=== PATIENT | female | born 1930 | race Hispanic/Latino ===

== ENCOUNTER 2017-09-01 21:10 | Inpatient (IN) | payer MEDICARE, BC ==
[2017-09-01 21:10] VITALS: BMI 21.2
--- NOTE | 2017-09-01 21:35 | ED PDOC ---
HPI: Psych/Substance Abuse Chief Complaint (Provider): psychiatric evaluation History Per: EMS, Other (NH) Additional Complaint(s): 86 y/o female history of bipolar disorder, dementia, hypothyroid, sent by [facility] for psychiatric evaluation. As per EMS, they were called because patient has been acting aggressive at the residential. Patient was admitted to [facility] last month for lithium toxicity and since then has not been on any medications for her bipolar. <Clover Sky - Last Filed: 09/02/17 05:57> <Oscar Espinoza - Last Filed: 09/02/17 06:34> Time Seen by Provider: 09/01/17 21:19 Chief Complaint (Nursing): Psychiatric Evaluation Past Medical History Reviewed: Historical Data, Nursing Documentation, Vital Signs Vital Signs: Last Vital Signs Temp 98.2 F 09/01/17 21:14 Pulse 107 H 09/01/17 21:14 Resp 20 09/01/17 21:14 BP 106/64 09/01/17 21:14 Pulse Ox 99 09/01/17 21:14 - Medical History PMH: Anxiety, Bipolar Disorder, Depression, HTN, Hypercholesterolemia, Hyperlipidemia, Hypothyroidism Denies: Chronic Kidney Disease - Family History Family History: States: Unknown Family Hx - Immunization History Hx Tetanus Toxoid Vaccination: No Hx Influenza Vaccination: No Hx Pneumococcal Vaccination: No <Clover Sky - Last Filed: 09/02/17 05:57> Vital Signs: Last Vital Signs Temp 98.0 F 09/02/17 03:53 Pulse 78 09/02/17 06:05 Resp 16 09/02/17 06:05 BP 105/79 09/02/17 06:05 Pulse Ox 100 09/02/17 06:05 <Oscar Espinoza - Last Filed: 09/02/17 06:34> - Home Medications Home Medications: Ambulatory Orders Medication Instructions Recorded Atorvastatin [Lipitor] 20 mg PO DAILY 07/10/17 Enalapril Maleate 5 mg PO DAILY 07/10/17 Levothyroxine [Synthroid] 50 mcg PO DAILY 07/10/17 Multivit-Min/FA/Lycopen/Lutein 1 each PO DAILY 07/10/17 [Centrum Silver Tablet] Acetaminophen [Tylenol 325mg tab] 650 mg PO Q6 PRN tab 07/15/17 Aluminum Hydroxide/Magnesium H 30 ml PO Q4H PRN 07/25/17 [Maalox 30 ml] Magnesium Hydroxide [Milk Of 30 ml PO HS 07/25/17 Magnesia] Docusate [Colace] 100 mg PO TID cap 08/05/17 Omeprazole [Omeprazole] 20 mg PO DAILY 09/02/17 - Allergies Allergies/Adverse Reactions: Allergies Allergy/AdvReac Type Severity Reaction Status Date / Time No Known Allergies Allergy Verified 09/02/17 04:15 Review of Systems Psych: Positive for: Psychosis <Clover Sky C - Last Filed: 09/02/17 05:57> Physical Exam - Reviewed Nursing Documentation Reviewed: Yes Vital Signs Reviewed: Yes - Physical Exam Appears: Positive for: Well, Non-toxic, No Acute Distress (calm, cooperative) Head Exam: Positive for: ATRAUMATIC, NORMAL INSPECTION, NORMOCEPHALIC Skin: Positive for: Normal Color Eye Exam: Positive for: Normal appearance ENT: Positive for: Normal ENT Inspection Cardiovascular/Chest: Positive for: Regular Rate, Rhythm Respiratory: Positive for: Normal Breath Sounds Gastrointestinal/Abdominal: Positive for: Normal Exam Back: Positive for: Normal Inspection Extremity: Positive for: Normal ROM Neurologic/Psych: Positive for: Alert, Oriented (x2) <Clover Sky C - Last Filed: 09/02/17 05:57> - Laboratory Results Result Diagrams: 09/01/17 21:48 09/01/17 21:48 - ECG ECG: Positive for: Viewed By Me (reviewed by ED attending) ECG Rhythm: Positive for: Sinus Tachycardia (105bpm) O2 Sat by Pulse Oximetry: 99 - Radiology X-Ray: Viewed By Me X-Ray Interpretation: No Acute Disease - Progress ED Course And Treament: labs, urine, ekg, chest xray, crisis eval 00:15 Patient attempting to get out of bed, swinging and cursing at staff trying to escort her back to bed. Ativan IM given. Soft restraints ordered for safety 1:30 Patient awake, resting comfortably in stretcher 3:00 Patient evaluated by squadron worker; to be admitted as per Dr. Harper pending POA arrival/signature Patient again agitated. Patient uncooperative for urine straight cath Ativan IM ordered 4:30 Patient sleeping; vitals stable on monitor 6:00 Patient sleeping; vitals stable on monitor <Clover Sky - Last Filed: 09/02/17 05:57> - Laboratory Results Result Diagrams: 09/01/17 21:48 09/01/17 21:48 <Oscar Espinoza - Last Filed: 09/02/17 06:34> Medical Decision Making Medical Decision Makin Patient sleeping comfortably, vitals normal. Pending POA arrival, will endorse case to Dr. Rendon. <Oscar Espinoza - Last Filed: 09/02/17 06:34> Disposition - Patient ED Disposition Is Patient to be Admitted: Yes - Disposition Disposition Time: 06:00 <Clover Sky - Last Filed: 09/02/17 05:57> - Patient ED Disposition Is Patient to be Admitted: Transfer of Care - Disposition Disposition: Transfer of Care Disposition Time: 07:00 Patient Signed Over To: Pedro Rendon Handoff Comments: pending arrival of POA and crisis determination <Oscar Espinoza - Last Filed: 09/02/17 06:34> - Clinical Impression Clinical Impression: Bipolar disorder - Disposition Condition: STABLE Forms: [employer] (Nauruan)
[2017-09-01 21:55] LABS: BASO % 0.2 % (0.0-2.0); EOS # 0.1 K/uL (0.0-0.7); EOS % 1.1 % (0.0-4.0); HEMOGLOBIN 10.9 g/dL (12.0-16.0); LYMPH # 1.1 K/uL (1.0-4.3); LYMPH % 15.7 % (20.0-40.0); MEAN CELL VOLUME 90.1 fl (81.0-99.0); MEAN CORPUSCULAR HGB CONC 34.3 g/dL (33.0-37.0); MEAN PLATELET VOLUME 7.6 fl (7.2-11.7); MONO # 0.6 K/uL (0.0-0.8); MONO % 9.1 % (0.0-10.0); NEUT # 5.3 K/uL (1.8-7.0); NEUT % 73.9 % (50.0-75.0); RBC 3.54 Mil/uL (3.80-5.20); RED CELL DISTRIBUTION WIDTH 14.7 % (11.5-14.5); WHITE BLOOD COUNT 7.1 K/uL (4.8-10.8)
[2017-09-01 22:04] LABS: ALB/GLOB RATIO 1.3 (1.0-2.1); ALBUMIN 3.7 g/dL (3.5-5.0); ALT/SGPT 33 U/L (9-52); AST/SGOT 31 U/L (14-36); BLOOD UREA NITROGEN 35 mg/dl (7-17); CALCIUM 9.3 mg/dL (8.4-10.2); GFR AFRICAN-AMERICAN 40; GFR NON-AFRICAN AMERICAN 33
[2017-09-02 04:20] LABS: URINE BILIRUBIN NEGATIVE (NEGATIVE); URINE BLOOD NEGATIVE (NEGATIVE); URINE CLARITY SLIGHTY-CLOUDY (Clear); URINE COLOR YELLOW (YELLOW); URINE GLUCOSE (UA) NEG (Normal); URINE LEUKOCYTE ESTERASE NEG Leu/uL (Negative); URINE PROTEIN NEGATIVE (NEGATIVE); URINE UROBILINOGEN 0.2-1.0 mg/dL (0.2-1.0)
[2017-09-02 04:23] LABS: BARBITURATES, UR NEGATIVE (NEGATIVE); OPIATES, UR NEGATIVE (NEGATIVE); PHENCYCLIDINE, UR NEGATIVE (NEGATIVE)
[2017-09-02 06:30] VITALS: O2SAT 100
--- NOTE | 2017-09-02 08:06 | RAD ---
HISTORY: ams COMPARISON: No prior. FINDINGS: LUNGS: No active pulmonary disease. PLEURA: No significant pleural effusion identified, no pneumothorax apparent. CARDIOVASCULAR: Normal. OSSEOUS STRUCTURES: No significant abnormalities. VISUALIZED UPPER ABDOMEN: Normal. OTHER FINDINGS: None. IMPRESSION: No acute cardiopulmonary disease appreciated.
--- NOTE | 2017-09-02 08:39 | ED PDOC ---
- Laboratory Results Result Diagrams: 09/01/17 21:48 09/01/17 21:48 - ECG O2 Sat by Pulse Oximetry: 100 - Progress ED Course And Treament: 700: Took over care from Dr. Espinoza. James on psych. Here for aggressive behavior and medically cleared by Dr. Espinoza. 1143: Stable. Crisis accepted pt. Labs similar to old. Disposition - Clinical Impression Clinical Impression: Bipolar disorder - POA Present On Arrival: None - Disposition Disposition: Admitted as In-Patient Disposition Time: 11:10 Condition: STABLE
[2017-09-02] MEDS ORDERED: Sodium Chloride 0.9% 500 ML IV STA (11:28)
[2017-09-02] MEDS ORDERED: Magnesium Hydroxide Susp 30 ml UD PO PRN (12:43)
[2017-09-02] MEDS ORDERED: Alum-Mag Hydrox-Simethicone Susp (30 mL) PO PRN (12:43)
[2017-09-02] MEDS ORDERED: Bismuth Subsalicylate 262 mg/15 ml Sus (240 ml) PO PRN (12:43)
--- NOTE | 2017-09-02 12:45 | PCM.PSYCH ---
Initial Psychiatric Evaluation - Initial Psychiatric Evaluation Type of Admission: Voluntary Legal Status: DPOA Chief Complaint (in patient's own words): Behavioral disturbances; poor appetite and diminished self care Patient's Reaction to Hospitalization: HPI: 86 yo w/ h/o Bipolar Disorder, Dementia, HTN, Hypothyrodism, Constipation, brought to ED for worsening behavior disturbances, aggression, decreased appetite, poor self care, mood lability and worsening dementia. Patient is unable to provide any history at this time due to acute disorganization. Software Product Specialist spoke with patient's sister, TEE, Aime Whelan [phone], who stated that the patient has been increasingly aggressive. She reports that has a long history of bipolar disorder, but was recently discontinued off the Ludden due to Ludden toxicity last month. PMHx: HTN, Hypothyroidism, Dementia PPHx: H/o Bipolar disorder and treatment w/ Ludden All: NKDA SHx: Denied any tobacco, ETOH, or illicit drug use; resides in a shelter POA: Aime Whelan - sister - [phone] Past Psychiatric History - Past Psychiatric History Pertinent Medical Hx (Current Medical&Sleep Prob, Allergies): Allergies Allergy/AdvReac Type Severity Reaction Status Date / Time No Known Allergies Allergy Verified 09/02/17 04:15 Atorvastatin [Lipitor] 20 mg PO DAILY 07/10/17 Enalapril Maleate 5 mg PO DAILY 07/10/17 Levothyroxine [Synthroid] 50 mcg PO DAILY 07/10/17 Multivit-Min/FA/Lycopen/Lutein [Centrum Silver Tablet] 1 each PO DAILY 07/10/17 Acetaminophen [Tylenol 325mg tab] 650 mg PO Q6 PRN tab 07/15/17 Aluminum Hydroxide/Magnesium H [Maalox 30 ml] 30 ml PO Q4H PRN 07/25/17 Magnesium Hydroxide [Milk Of Magnesia] 30 ml PO HS 07/25/17 Docusate [Colace] 100 mg PO TID cap 08/05/17 Omeprazole [Omeprazole] 20 mg PO DAILY 09/02/17 Review of Systems - Neurological Neurological: Abnormal Gait, Memory Loss - Psychiatric Psychiatric: As Per HPI, Abnormal Sleep Pattern, Behavioral Changes, Change in Appetite, Confusion, Difficulty Concentrating, Irritability, Memory Loss, Mood Swings Mental Status Examination - Personal Presentation Personal Presentation: Looks stated age - Affect Affect: Constricted - Motor Activity Motor Activity: Calm - Reliability in Providing Information Reliability in Providing Information: Poor, due to cognitve impairment - Speech Speech: Disorganized - Mood Mood: Neutral - Formal Thought Process Formal Thought Process: Loosening of associations - Hallucinations/Delusions Additional comments: No acute AH/VH - Obsessions/Compulsions Obsessions: No Compulsions: No - Cognitive Functions Orientation: Person Sensorium: Lethargic Attention/Concentration: Easily distracted Judgement: Imparied, as evidence by: Poor judgement, Imparied, as evidence by: Lack of insight into illness Memory: Recent impaired, as evidence by: Inability to recall events of the day, Recent imparied as evidence by:Inability to complete 3/3 object recall, Remote impaired as evidenced by: Inability to recall sig life events, Remote impaired as evidenced by: Inability to recall historical events - Risk Risk: Diminished functioning - Strength & Assets Inventory Strength & Assets Inventory: Family support - Limitations Limitations: Decreased memory, recent DSM 5 DX - DSM 5 DSM 5 Diagnosis: Bipolar Disorder; Dementia with Behavioral Disturbances - Recommended/Plan of Treatment Treatment Recommendations and Plan of Treatment: Bipolar Disorder; Dementia with Behavioral Disturbances -Admit to geriatric psychiatry unit -Medicine consult -Individual and group therapy -Case discussed w/ POA -Psychoeducation for patient and family -Restart Namenda -Start Depakote; will monitor VPA level -PT consult -Dietitian referral -Disposition planning Projected ELOS: 7-14 days Discharge Plan and Discharge Criteria: Discharge when patient is psychiatrically stable - Smoking Cessation Smoking Cessation Initiated: No Reason for not providing: Not indicated
[2017-09-02] MEDS ORDERED: Pantoprazole 40 mg EC Tab PO SCH (13:00)
--- NOTE | 2017-09-02 13:02 | PCM.BM ---
<Jenny Patterson - Last Filed: 09/02/17 12:55> Treatment Plan Problems - Problems identified on initial assessmt agitation/agressive behavior Date Initiated: 09/02/17 Time Initiated: 13:02 Date resolved: 09/09/17 Assessment reference: AT, NA Status: Active Priority: 1 high risk for injury Date Initiated: 09/02/17 Time Initiated: 13:07 Date resolved: 09/09/17 Assessment reference: NA Status: Active Priority: 2 Treatment assets and liabiliti Patient Assests: good support system Patient Liabilities: medical problems, imparied memory - Milieu Protocol Maintain good personal hygiene: every shift Encourage regular showers, every shift Remind patient to perform daily oral care, every shift Assist patient to perform ADL's Maintain personal safety: every shift Educate patient to report safety concerns to staff, every shift Monitor environment for contraband/sharps Medication safety: Monitor for expected outcome, potential side effects: every shift, Assess barriers to learning: every shift, Assess readiness for medication education: every shift <Ginny Hinojosa - Last Filed: 09/02/17 13:28> - Diagnosis (1) Dementia with behavioral disturbance Status: Acute Interventions: Medication management, Individual and group therapy, Psychoeducation 09/02/17 13:28 (2) Bipolar disorder Status: Acute Interventions: Medication management, Individual and group therapy, Psychoeducation 09/02/17 13:28 <Keila Mcbride - Last Filed: 09/03/17 12:43> Family Contact Family contact: Patient agrees to contact, Family has been contacted by patient , Telephone contact initiated by staff Family contact name: Aime LUI) Family contacted how many times per week?: 2 Family contact comment: [phone] - Outside Agency [facility] Care involvment: Information-sharing Agency contact number: [phone] - Goals for Treatment Patient goals for treatment: Pt to be encouraged to attend activity and clinical groups 3-5x per week to identify at least 2 contributing factors to increased agitation, irritability, and aggression. Psycho-education to be provided to patient/family regarding benefits of medications and treatment adherence. Pt to be encouraged to participate in group milieu to develop effective coping skills to reduce aggression and reduce psychiatric hospitalizations. Coordinate discharge resource needs by providing referral for psychiatric treatment follow up in the community. Discharge/Continuing Care - Education Needs Education Needs: Family Medication, Family Diagnosis/Disease Process, Family Coping Skills, Family Placement options, Family Uses of Medical Equipment, Family Health Practices/Safety, Family Personal Hygiene/Grooming - Discharge Discharge Criteria: Tolerates medication w/o severe side effects, Free of agitation, Normal sleep pattern, Ability to care for self, Reduction of target symptoms Discharge to:: Group Home - Additional Comments 09/03/17 12:39 Pt discussed in team meeting. Pt observed to be asleep and not easily aroused. Reason for admissions reviewed and discussed. Pt's medical and social issues reviewed. Pt's medications reviewed and discussed. Tx plan reviewed. SW to contact POA and LTC facility for collateral information. SW to continue to follow case. - Treatment Team Participation Discussed with Family/SO: No Was Patient/Family/SO present at Treatment Team Meeting: No
--- NOTE | 2017-09-02 13:49 | CARD ---
APPROVED REPORT EKG Measurement Heart [id number] <Conclusion> Sinus tachycardia RBBB Borderline ECG
--- NOTE | 2017-09-02 15:00 | CP.PCM.CON ---
History of Present Illness - History of Present Illness History of Present Illness: Reason for Consult: Per hospital protocol HPI: 86 year old female PMH HTN, hyperthyroid, dyslipidemia, bipolar disorder, dementia, admitted to psych for aggressive behavior. Currently patient unable to give history due to sedation given in ED. Cast L arm. HD stable, no acute distress at this time. ROS: Per HPI, all other systems reviewed and neg PMH: HTN, hyperthyroid, dyslipidemia, bipolar disorder, dementia FH: denies SH: denies tobacco, ETOH, IVDU NKDA Vitals Reviewed GEN: sedated, somnolent HEENT: NCAT, PERRL, EOMI HEART: RRR, +S1S2, NO MRG LUNG: CTAB, NO WRR ABD: soft, NT, ND, No HSM, No masses EXT: normal pedal pulses, normal capillary refill NEURO: sedated, somnolent, reflexes normal SKIN: warm, dry PSYCH: unable to assess, sedated LABS Most Recent Lab Values WBC 7.1 K/uL (4.8-10.8) 09/01/17 21:48 RBC 3.54 Mil/uL (3.80-5.20) L 09/01/17 21:48 Hgb 10.9 g/dL (12.0-16.0) L 09/01/17 21:48 Hct 31.9 % (34.0-47.0) L 09/01/17 21:48 MCV 90.1 fl (81.0-99.0) 09/01/17 21:48 MCH 31.0 pg (27.0-31.0) 09/01/17 21:48 MCHC 34.3 g/dL (33.0-37.0) 09/01/17 21:48 RDW 14.7 % (11.5-14.5) H 09/01/17 21:48 Plt Count 222 K/uL (130-400) 09/01/17 21:48 MPV 7.6 fl (7.2-11.7) 09/01/17 21:48 Neut % (Auto) 73.9 % (50.0-75.0) 09/01/17 21:48 Lymph % (Auto) 15.7 % (20.0-40.0) L 09/01/17 21:48 Bailey % (Auto) 9.1 % (0.0-10.0) 09/01/17 21:48 Eos % (Auto) 1.1 % (0.0-4.0) 09/01/17 21:48 Baso % (Auto) 0.2 % (0.0-2.0) 09/01/17 21:48 Neut # (Auto) 5.3 K/uL (1.8-7.0) 09/01/17 21:48 Lymph # (Auto) 1.1 K/uL (1.0-4.3) 09/01/17 21:48 Bailey # (Auto) 0.6 K/uL (0.0-0.8) 09/01/17 21:48 Eos # (Auto) 0.1 K/uL (0.0-0.7) 09/01/17 21:48 Baso # (Auto) 0.0 K/uL (0.0-0.2) 09/01/17 21:48 Sodium 139 mmol/l (132-148) 09/01/17 21:48 Potassium 4.6 MMOL/L (3.6-5.0) 09/01/17 21:48 Chloride 98 mmol/L (98-107) 09/01/17 21:48 Carbon Dioxide 31 mmol/L (22-30) H 09/01/17 21:48 Anion Gap 15 (10-20) 09/01/17 21:48 BUN 35 mg/dl (7-17) H 09/01/17 21:48 Creatinine 1.5 mg/dl (0.7-1.2) H 09/01/17 21:48 Est GFR ( Amer) 40 09/01/17 21:48 Est GFR (Non-Af Amer) 33 09/01/17 21:48 POC Glucose (mg/dL) 116 mg/dL (65-110) H 09/01/17 21:46 Random Glucose 112 mg/dL (65-105) H 09/01/17 21:48 Calcium 9.3 mg/dL (8.4-10.2) 09/01/17 21:48 Total Bilirubin 0.4 mg/dl (0.2-1.3) 09/01/17 21:48 AST 31 U/L (14-36) 09/01/17 21:48 ALT 33 U/L (9-52) 09/01/17 21:48 Alkaline Phosphatase 68 U/L (38-126) 09/01/17 21:48 Total Protein 6.6 G/DL (6.3-8.2) 09/01/17 21:48 Albumin 3.7 g/dL (3.5-5.0) 09/01/17 21:48 Globulin 2.9 gm/dL (2.2-3.9) 09/01/17 21:48 Albumin/Globulin Ratio 1.3 (1.0-2.1) 09/01/17 21:48 TSH 3rd Generation 5.11 mIU/ML (0.46-4.68) H 09/01/17 21:48 Urine Color Yellow (YELLOW) 09/02/17 03:45 Urine Clarity Slighty-cloudy (Clear) 09/02/17 03:45 Urine pH 6.0 (5.0-8.0) 09/02/17 03:45 Ur Specific [place] 1.012 (1.003-1.030) 09/02/17 03:45 Urine Protein Negative mg/dL (NEGATIVE) 09/02/17 03:45 Urine Glucose (UA) Neg mg/dL (Normal) 09/02/17 03:45 Urine Ketones Negative mg/dL (NEGATIVE) 09/02/17 03:45 Urine Blood Negative (NEGATIVE) 09/02/17 03:45 Urine Nitrate Negative (NEGATIVE) 09/02/17 03:45 Urine Bilirubin Negative (NEGATIVE) 09/02/17 03:45 Urine Urobilinogen 0.2-1.0 mg/dL (0.2-1.0) 09/02/17 03:45 Ur Leukocyte Esterase Neg Vianca/uL (Negative) 09/02/17 03:45 Urine RBC (Auto) 1 /hpf (0-3) 09/02/17 03:45 Urine Microscopic WBC < 1 /hpf (0-5) 09/02/17 03:45 Urine Opiates Screen Negative (NEGATIVE) 09/02/17 03:45 Urine Methadone Screen Negative (NEGATIVE) 09/02/17 03:45 Ur Barbiturates Screen Negative (NEGATIVE) 09/02/17 03:45 Ur Phencyclidine Scrn Negative (NEGATIVE) 09/02/17 03:45 Ur Amphetamines Screen Negative (NEGATIVE) 09/02/17 03:45 U Benzodiazepines Scrn No result (NEGATIVE) 09/02/17 03:45 [employer] < 0.2 MMOL/L (0.6-1.2) L 09/01/17 21:48 U Oth Cocaine Metabols Negative (NEGATIVE) 09/02/17 03:45 U Cannabinoids Screen Negative (NEGATIVE) 09/02/17 03:45 Alcohol, Quantitative < 10 mg/dl (0-10) 09/01/17 21:48 ASSESSMENT AND PLAN 86 year old female PMH HTN, hyperthyroid, dyslipidemia, bipolar disorder, dementia, admitted to psych for aggressive behavior. Currently patient unable to give history due to sedation given in ED. HD stable, no acute distress at this time. Dementia, Bipolar disorder - management per psych team Multiple Falls, L arm cast - Cast L arm, outpatient follow up in one week HTN - continue Enalapril Hyperthyroid - continue Synthroid Dyslipidemia - continue Lipitor Past Patient History - Past Medical History & Family History Past Medical History?: Yes - Past Social History Smoking Status: Never Smoked - CARDIAC Hx Hypercholesterolemia: Yes Hx Hypertension: Yes - PULMONARY Hx Tuberculosis: No - NEUROLOGICAL HX Cerebrovascular Accident: No Hx Seizures: No - HEENT Hx HEENT Problems: No - RENAL Hx Chronic Kidney Disease: No - ENDOCRINE/METABOLIC Hx Hypothyroidism: Yes - HEMATOLOGICAL/ONCOLOGICAL Hx Cancer: No Hx Human Immunodeficiency Virus (HIV): No - INTEGUMENTARY Hx Dermatological Problems: No - MUSCULOSKELETAL/RHEUMATOLOGICAL Hx Musculoskeletal Disorders: Yes Hx Falls: Yes - GASTROINTESTINAL Hx Gastrointestinal Disorders: No - GENITOURINARY/GYNECOLOGICAL Hx Sexually Transmitted Disorders: No - PSYCHIATRIC Hx Anxiety: Yes Hx Bipolar Disorder: Yes Hx Depression: Yes - SURGICAL HISTORY Hx Surgeries: No Other/Comment: left distal radius closed reduction (07/14/17) - ANESTHESIA Hx Anesthesia: Yes Hx Anesthesia Reactions: No Hx Malignant Hyperthermia: No Meds Allergies/Adverse Reactions: Allergies Allergy/AdvReac Type Severity Reaction Status Date / Time No Known Allergies Allergy Verified 09/02/17 04:15 - Medications Medications: Current Medications Acetaminophen (Tylenol 325mg Tab) 650 mg PO Q4 PRN PRN Reason: Pain, moderate (4-7) Al Hydrox/Mg Hydrox/Simethicone (Maalox Plus 30 Ml) 30 ml PO Q4 PRN PRN Reason: Dyspepsia Atorvastatin Calcium (Lipitor) 20 mg PO DAILY [facility] Bismuth Subsalicylate (Pepto-Bismol) 524 mg PO Q4 PRN PRN Reason: Diarrhea Divalproex Sodium (Depakote Sprinkles) 250 mg PO BID MICHAEL Docusate Sodium (Colace) 100 mg PO BID [facility] Enalapril Maleate (Vasotec) 5 mg PO DAILY [facility] Haloperidol Lactate (Haldol) 0.5 mg IM Q12 PRN PRN Reason: Agitation Levothyroxine Sodium (Synthroid) 50 mcg PO DAILY@0630 MICHAEL Lorazepam (Ativan) 0.5 mg PO HS PRN PRN Reason: Insomnia Stop: 09/16/17 12:44 Lorazepam (Ativan) 0.5 mg PO Q6 PRN PRN Reason: Anixety/Agitation Stop: 09/16/17 12:44 Magnesium Hydroxide (Milk Of Magnesia) 30 ml PO HS PRN PRN Reason: Constipation Memantine (Namenda) 5 mg PO BID [facility] Multivitamins/Minerals (Therapeutic-M Tab) 1 tab PO DAILY [facility] Risperidone (Risperdal M-Tab) 0.5 mg PO Q12 PRN PRN Reason: Agitation Results - Vital Signs Recent Vital Signs: Last Vital Signs Temp 97.9 F 09/02/17 11:55 Pulse 62 09/02/17 11:55 Resp 17 09/02/17 11:55 BP 118/78 09/02/17 11:55 Pulse Ox 100 09/02/17 11:55 - Labs Result Diagrams: 09/01/17 21:48 09/01/17 21:48 Labs: Laboratory Results - last 24 hr 09/01/17 09/01/17 09/01/17 21:46 21:48 21:48 WBC 7.1 RBC 3.54 L Hgb 10.9 L Hct 31.9 L MCV 90.1 MCH 31.0 MCHC 34.3 RDW 14.7 H Plt Count 222 MPV 7.6 Neut % (Auto) 73.9 Lymph % (Auto) 15.7 L Bailey % (Auto) 9.1 Eos % (Auto) 1.1 Baso % (Auto) 0.2 Neut # (Auto) 5.3 Lymph # (Auto) 1.1 Bailey # (Auto) 0.6 Eos # (Auto) 0.1 Baso # (Auto) 0.0 Sodium 139 Potassium 4.6 Chloride 98 Carbon Dioxide 31 H Anion Gap 15 BUN 35 H Creatinine 1.5 H Est GFR ( Amer) 40 Est GFR (Non-Af Amer) 33 POC Glucose (mg/dL) 116 H Random Glucose 112 H Calcium 9.3 Total Bilirubin 0.4 AST 31 ALT 33 Alkaline Phosphatase 68 Total Protein 6.6 Albumin 3.7 Globulin 2.9 Albumin/Globulin Ratio 1.3 TSH 3rd Generation 5.11 H Urine Color Urine Clarity Urine pH Ur Specific [place] Urine Protein Urine Glucose (UA) Urine Ketones Urine Blood Urine Nitrate Urine Bilirubin Urine Urobilinogen Ur Leukocyte Esterase Urine RBC (Auto) Urine Microscopic WBC Urine Opiates Screen Urine Methadone Screen Ur Barbiturates Screen Ur Phencyclidine Scrn Ur Amphetamines Screen U Benzodiazepines Scrn [employer] U Oth Cocaine Metabols U Cannabinoids Screen Alcohol, Quantitative < 10 09/01/17 09/02/17 09/02/17 21:48 03:45 03:45 WBC RBC Hgb Hct MCV MCH MCHC RDW Plt Count MPV Neut % (Auto) Lymph % (Auto) Bailey % (Auto) Eos % (Auto) Baso % (Auto) Neut # (Auto) Lymph # (Auto) Bailey # (Auto) Eos # (Auto) Baso # (Auto) Sodium Potassium Chloride Carbon Dioxide Anion Gap BUN Creatinine Est GFR ( Amer) Est GFR (Non-Af Amer) POC Glucose (mg/dL) Random Glucose Calcium Total Bilirubin AST ALT Alkaline Phosphatase Total Protein Albumin Globulin Albumin/Globulin Ratio TSH 3rd Generation Urine Color Yellow Urine Clarity Slighty-cloudy Urine pH 6.0 Ur Specific [place] 1.012 Urine Protein Negative Urine Glucose (UA) Neg Urine Ketones Negative Urine Blood Negative Urine Nitrate Negative Urine Bilirubin Negative Urine Urobilinogen 0.2-1.0 Ur Leukocyte Esterase Neg Urine RBC (Auto) 1 Urine Microscopic WBC < 1 Urine Opiates Screen Negative Urine Methadone Screen Negative Ur Barbiturates Screen Negative Ur Phencyclidine Scrn Negative Ur Amphetamines Screen Negative U Benzodiazepines Scrn No result [employer] < 0.2 L U Oth Cocaine Metabols Negative U Cannabinoids Screen Negative Alcohol, Quantitative
[2017-09-02] MEDS: Divalproex 125 mg Sprinkle Capsule PO SCH (16:56)
[2017-09-02] MEDS: Multivitamin With Minerals Tab PO SCH (16:58)
[2017-09-02] MEDS ORDERED: Divalproex 125 mg Sprinkle Capsule PO SCH (17:00)
[2017-09-03 06:43] LABS: HEMOGLOBIN 11.1 g/dL (12.0-16.0); MEAN CELL VOLUME 90.7 fl (81.0-99.0); MEAN CORPUSCULAR HGB CONC 33.1 g/dL (33.0-37.0); RBC 3.7 Mil/uL (3.80-5.20); RED CELL DISTRIBUTION WIDTH 14.7 % (11.5-14.5); WHITE BLOOD COUNT 6.2 K/uL (4.8-10.8)
[2017-09-03 06:57] LABS: LDL CHOLESTEROL 72 mg/dL (0-129)
[2017-09-03 07:03] LABS: T4 5.55 ug/dl (5.5-11.0)
[2017-09-03 07:28] LABS: ALB/GLOB RATIO 1.2 (1.0-2.1); ALBUMIN 3.2 g/dL (3.5-5.0); ALT/SGPT 39 U/L (9-52); AST/SGOT 38 U/L (14-36); BLOOD UREA NITROGEN 24 mg/dl (7-17); CALCIUM 9.1 mg/dL (8.4-10.2); GFR AFRICAN-AMERICAN 51; GFR NON-AFRICAN AMERICAN 42; HDL CHOLESTEROL 66 MG/DL (30-70)
--- NOTE | 2017-09-03 09:15 | PCM.PYCHPN ---
Psychiatric Progress Note - Psychiatric Progress Note Patient seen today, length of contact: Patient evaluated, case discussed with team, chart reviewed Patient Chief Complaint: Behavioral disturbances; poor appetite and diminished self care Problems Identified/Issues Discussed: Patient slept overnight. She is sleeping excessively, likely due to not sleeping the night before and being medicated with PRN medications in the ER due to extreme agitation. No PRN medications needed yesterday after she was admitted to the psychiatry unit. Garment Sewer Hand spoke with TEE yesterday who states that this is not the patient's baseline of functioning and normally she is alert and calm. Medication Change: No Medical Record Reviewed: Yes Consults ordered or reviewed: Medicine consult Mental Status Examination - Cognitive Function Orientation: Person Memory: Impaired Attention: Poor Concentration: Poor Association: Loose Fund of Knowledge: Poor Decription of patient's judgement and insights: Chronic poor I/J due to dementia - Mood Mood: Neutral - Affect Affect: Constricted - Formal Thought Process Formal Thought Process: Loosening of associations Psychotic Thoughts and Behaviors: No AH/VH/paranoia - Suicidal Ideation Suicidal Ideation: No - Homicidal Ideation Homicidal Ideation: No Goal/Treatment Plan - Goal/Treatment Plan Need for Continued Stay: Remain at risks for inpatient hospitalization, Discharge may exacerbated symptoms, Severe functional impairment Progress Toward Problem(s) and Goals/Treatment Plan: Bipolar Disorder; Dementia with Behavioral Disturbances -Medicine consult -Individual and group therapy -Case discussed w/ POA -Psychoeducation provided to POA -Continue Namenda -Continue Depakote; will monitor VPA level -PT consult -Dietitian referral -Disposition planning Estimated Date of D/C: 09/09/17 - Smoking Cessation Smoking Cessation Initiated: No Reason for not providing: Not indicated
[2017-09-03] MEDS: Divalproex 125 mg Sprinkle Capsule PO SCH ×2 (11:00→16:54)
[2017-09-03] MEDS: Levothyroxine 50 MCG TAB PO SCH (11:03)
[2017-09-03] MEDS: Multivitamin With Minerals Tab PO SCH (11:04)
[2017-09-03 16:04] LABS: FOLATE > 20.0 ng/mL
--- NOTE | 2017-09-04 09:51 | PCM.PYCHPN ---
Psychiatric Progress Note - Psychiatric Progress Note Patient seen today, length of contact: Patient evaluated, case discussed with team, chart reviewed Patient Chief Complaint: Behavioral disturbances; poor appetite and diminished self care Problems Identified/Issues Discussed: Patient did not sleep well overnight and has been sleeping excessively during the day. She continues to be labile, but has not been acutely violent towards others. She continues to have poor appetite and poor self care. She has chronic poor insight/judgment due to dementia. No adverse effects to medication reported or observed. Medication Change: No Medical Record Reviewed: Yes Consults ordered or reviewed: Medicine consult Mental Status Examination - Cognitive Function Orientation: Person Memory: Impaired Attention: Poor Concentration: Poor Association: Loose Fund of Knowledge: Poor Decription of patient's judgement and insights: Chronic poor I/J due to dementia - Mood Mood: Neutral - Affect Affect: Constricted - Formal Thought Process Formal Thought Process: Loosening of associations Psychotic Thoughts and Behaviors: No AH/VH/paranoia - Suicidal Ideation Suicidal Ideation: No - Homicidal Ideation Homicidal Ideation: No Goal/Treatment Plan - Goal/Treatment Plan Need for Continued Stay: Remain at risks for inpatient hospitalization, Discharge may exacerbated symptoms, Severe functional impairment Progress Toward Problem(s) and Goals/Treatment Plan: Bipolar Disorder; Dementia with Behavioral Disturbances -Medicine consult -Individual and group therapy -Case discussed w/ POA -Psychoeducation provided to POA -Continue Namenda -Continue Depakote; will monitor VPA level -PT consult -Dietitian consult -Disposition planning Estimated Date of D/C: 09/10/17
[2017-09-04] MEDS: Divalproex 125 mg Sprinkle Capsule PO SCH ×2 (10:22→16:50)
[2017-09-04] MEDS: Levothyroxine 50 MCG TAB PO SCH (10:25)
[2017-09-04] MEDS: Multivitamin With Minerals Tab PO SCH (14:48)
[2017-09-04] MEDS: Cholecalciferol 400 Intl Units Tab PO SCH (16:50)
--- NOTE | 2017-09-05 07:54 | PCM.PYCHPN ---
Psychiatric Progress Note - Psychiatric Progress Note Patient seen today, length of contact: Patient evaluated, case discussed with team, chart reviewed Patient Chief Complaint: Behavioral disturbances; poor appetite and diminished self care Problems Identified/Issues Discussed: Patient had improved sleep last night. She is not violent or aggressive, but continues to be labile. She is paranoid that staff are trying to harm her and does not want to talk with policy writer. She continues to have poor appetite and poor self care. She has chronic poor insight/judgment due to dementia. No adverse effects to medication reported or observed. Medication Change: Yes (Start Risperdal 0.25 mg PO HS) Medical Record Reviewed: Yes Consults ordered or reviewed: Medicine consult Mental Status Examination - Cognitive Function Orientation: Person Memory: Impaired Attention: Poor Concentration: Poor Association: Loose Fund of Knowledge: Poor Decription of patient's judgement and insights: Chronic poor I/J due to dementia - Mood Mood: Neutral - Affect Affect: Constricted - Formal Thought Process Formal Thought Process: Paranoia, Loosening of associations Psychotic Thoughts and Behaviors: +Paranoia - Suicidal Ideation Suicidal Ideation: No - Homicidal Ideation Homicidal Ideation: No Goal/Treatment Plan - Goal/Treatment Plan Need for Continued Stay: Remain at risks for inpatient hospitalization, Discharge may exacerbated symptoms, Severe functional impairment Progress Toward Problem(s) and Goals/Treatment Plan: Bipolar Disorder; Dementia with Behavioral Disturbances -Medicine consult -Individual and group therapy -Case discussed w/ POA -Psychoeducation provided to POA -Continue Namenda -Continue Depakote; VPA level ordered for 09/08/17 -Start Risperdal 0.25 mg PO HS for acute paranoia -PT consult -Dietitian consult -Disposition planning Estimated Date of D/C: 09/10/17
[2017-09-05] MEDS: Divalproex 125 mg Sprinkle Capsule PO SCH ×2 (08:00→16:54)
[2017-09-05] MEDS: Cholecalciferol 400 Intl Units Tab PO SCH (08:01)
[2017-09-05] MEDS: Levothyroxine 50 MCG TAB PO SCH (08:01)
[2017-09-05] MEDS: Multi Vitamins 15 mL UD Oral Solution PO SCH (08:25)
[2017-09-05] MEDS: Risperidone M tab 0.5MG PO PRN (16:55)
[2017-09-06] MEDS: Levothyroxine 50 MCG TAB PO SCH (06:18)
[2017-09-06] MEDS: Divalproex 125 mg Sprinkle Capsule PO SCH ×2 (08:22→17:04)
[2017-09-06] MEDS: Multi Vitamins 15 mL UD Oral Solution PO SCH (08:23)
[2017-09-06] MEDS: Cholecalciferol 400 Intl Units Tab PO SCH (08:23)
--- NOTE | 2017-09-06 13:20 | PCM.PYCHPN ---
Psychiatric Progress Note - Psychiatric Progress Note Patient seen today, length of contact: Patient evaluated, case discussed with team, chart reviewed Patient Chief Complaint: I am tired Problems Identified/Issues Discussed: pt seen in bed, guarded, anxious, confused , denied any current suicidal or homicidal ideation, denied prceptual disturbances DSM 5 Symptoms Update: dementia bipolar disorder Medication Change: No Medical Record Reviewed: Yes Mental Status Examination - Cognitive Function Orientation: Person Memory: Impaired Attention: Poor Concentration: Poor Association: Loose Fund of Knowledge: Poor - Mood Mood: Neutral - Affect Affect: Constricted - Formal Thought Process Formal Thought Process: Paranoia, Loosening of associations - Suicidal Ideation Suicidal Ideation: No - Homicidal Ideation Homicidal Ideation: No Goal/Treatment Plan - Goal/Treatment Plan Need for Continued Stay: Remain at risks for inpatient hospitalization, Discharge may exacerbated symptoms, Severe functional impairment Progress Toward Problem(s) and Goals/Treatment Plan: continue current management Estimated Date of D/C: 09/10/17
[2017-09-06] MEDS: Risperidone M tab 0.5MG PO PRN (17:05)
[2017-09-07] MEDS: Divalproex 125 mg Sprinkle Capsule PO SCH ×2 (09:41→17:16)
[2017-09-07] MEDS: Levothyroxine 50 MCG TAB PO SCH (09:42)
[2017-09-07] MEDS: Multi Vitamins 15 mL UD Oral Solution PO SCH (09:42)
[2017-09-07] MEDS: Cholecalciferol 400 Intl Units Tab PO SCH (09:43)
--- NOTE | 2017-09-07 14:33 | PCM.PYCHPN ---
Psychiatric Progress Note - Psychiatric Progress Note Patient seen today, length of contact: Patient evaluated, case discussed with team, chart reviewed Patient Chief Complaint: I am fine Problems Identified/Issues Discussed: pt seen in bed, guarded, anxious, confused ,constricted affet, no reported behavioral disturbances denied any current suicidal or homicidal ideation, denied prceptual disturbances DSM 5 Symptoms Update: dementia bipolar disorder Medication Change: No Medical Record Reviewed: Yes Mental Status Examination - Cognitive Function Orientation: Person Memory: Impaired Attention: Poor Concentration: Poor Association: Loose Fund of Knowledge: Poor Decription of patient's judgement and insights: poor insight and judgment - Mood Mood: Neutral - Affect Affect: Constricted - Speech Speech: Soft - Formal Thought Process Formal Thought Process: Paranoia, Loosening of associations - Suicidal Ideation Suicidal Ideation: No - Homicidal Ideation Homicidal Ideation: No Goal/Treatment Plan - Goal/Treatment Plan Need for Continued Stay: Remain at risks for inpatient hospitalization, Discharge may exacerbated symptoms, Severe functional impairment Progress Toward Problem(s) and Goals/Treatment Plan: continue current medications supportive therapy Estimated Date of D/C: 09/10/17
[2017-09-07] MEDS: Risperidone M tab 0.5MG PO PRN (19:24)
--- NOTE | 2017-09-08 07:53 | PCM.PYCHPN ---
Psychiatric Progress Note - Psychiatric Progress Note Patient seen today, length of contact: Patient evaluated, case discussed with team, chart reviewed Patient Chief Complaint: Behavioral disturbances; poor appetite and diminished self care Problems Identified/Issues Discussed: Patient did not sleep well the past two nights. She has been observed talking to herself and has been yelling at staff intermittently. She seems internally preoccupied, paranoid and labile. She continues to have poor appetite and poor self care. She has chronic poor insight/judgment due to dementia. No adverse effects to medication reported or observed. Diagnostic Results: VPA 59.8 Medication Change: Yes (Increase Risperdal to 0.5 mg PO HS) Medical Record Reviewed: Yes Consults ordered or reviewed: Medicine consult Mental Status Examination - Cognitive Function Orientation: Person Memory: Impaired Attention: Poor Concentration: Poor Association: Loose Fund of Knowledge: Poor Decription of patient's judgement and insights: Chronic poor I/J due to dementia - Mood Mood: Neutral - Affect Affect: Constricted - Speech Speech: Soft - Formal Thought Process Formal Thought Process: Paranoia, Loosening of associations Psychotic Thoughts and Behaviors: +Paranoia, +Internal preoccupation/responding to internal stimuli - Suicidal Ideation Suicidal Ideation: No - Homicidal Ideation Homicidal Ideation: No Goal/Treatment Plan - Goal/Treatment Plan Need for Continued Stay: Remain at risks for inpatient hospitalization, Discharge may exacerbated symptoms, Severe functional impairment Progress Toward Problem(s) and Goals/Treatment Plan: Bipolar Disorder; Dementia with Behavioral Disturbances -Medicine consult -Individual and group therapy -Case discussed w/ POA -Psychoeducation provided to POA -Continue Namenda 5 mg PO BID -Continue Depakote 250 mg PO BID; VPA 59.8 -Increase Risperdal to 0.5 mg PO HS -PT consult -Dietitian consult -Disposition planning Estimated Date of D/C: 09/11/17
[2017-09-08] MEDS: Divalproex 125 mg Sprinkle Capsule PO SCH ×3 (08:21→21:04)
[2017-09-08] MEDS: Levothyroxine 50 MCG TAB PO SCH ×2 (08:22→09:24)
[2017-09-08] MEDS: Cholecalciferol 400 Intl Units Tab PO SCH ×2 (08:22→09:24)
[2017-09-08] MEDS: Multi Vitamins 15 mL UD Oral Solution PO SCH (09:24)
[2017-09-09] MEDS: Levothyroxine 50 MCG TAB PO SCH (06:22)
[2017-09-09] MEDS: Cholecalciferol 400 Intl Units Tab PO SCH (08:14)
[2017-09-09] MEDS: Divalproex 125 mg Sprinkle Capsule PO SCH ×3 (08:14→18:18)
[2017-09-09] MEDS: Multi Vitamins 15 mL UD Oral Solution PO SCH (08:15)
--- NOTE | 2017-09-09 09:21 | PCM.PYCHPN ---
Psychiatric Progress Note - Psychiatric Progress Note Patient seen today, length of contact: Patient evaluated, case discussed with team, chart reviewed Patient Chief Complaint: Behavioral disturbances; poor appetite and diminished self care Problems Identified/Issues Discussed: Patient continues to have behavioral disturbances, poor sleep and poor appetite. She is labile and irritable towards staff at times. She has chronic poor insight/judgment due to dementia. No adverse effects to medication reported or observed. Diagnostic Results: VPA 59.8 Medication Change: Yes (Increase Depakote to 250 mg PO Daily/ 375 mg PO @1700) Medical Record Reviewed: Yes Consults ordered or reviewed: Medicine consult, Dietitian consult Mental Status Examination - Cognitive Function Orientation: Person Memory: Impaired Attention: Poor Concentration: Poor Association: Loose Fund of Knowledge: Poor Decription of patient's judgement and insights: Chronic poor I/J due to dementia - Mood Mood: Neutral - Affect Affect: Constricted - Speech Speech: Soft - Formal Thought Process Formal Thought Process: Loosening of associations Psychotic Thoughts and Behaviors: +Internal preoccupation/possibly responding to internal stimuli - Suicidal Ideation Suicidal Ideation: No - Homicidal Ideation Homicidal Ideation: No Goal/Treatment Plan - Goal/Treatment Plan Need for Continued Stay: Remain at risks for inpatient hospitalization, Discharge may exacerbated symptoms, Severe functional impairment Progress Toward Problem(s) and Goals/Treatment Plan: Bipolar Disorder; Dementia with Behavioral Disturbances -Medicine consult -Individual and group therapy -Case discussed w/ POA; psychoeducation provided -Continue Namenda 5 mg PO BID -Increase Depakote to 250 mg PO Daily/ 375 mg @1700; VPA 59.8 -Continue Risperdal 0.5 mg PO HS -PT consult -Dietitian consult -Disposition planning Estimated Date of D/C: 09/15/17
[2017-09-09] MEDS: Risperidone M tab 0.5MG PO PRN ×2 (12:46→21:14)
[2017-09-10] MEDS: Divalproex 125 mg Sprinkle Capsule PO SCH ×2 (10:39→16:16)
[2017-09-10] MEDS: Levothyroxine 50 MCG TAB PO SCH (10:41)
[2017-09-10] MEDS: Multi Vitamins 15 mL UD Oral Solution PO SCH (10:41)
[2017-09-10] MEDS: Cholecalciferol 400 Intl Units Tab PO SCH (10:42)
--- NOTE | 2017-09-10 11:58 | PCM.PYCHPN ---
Psychiatric Progress Note - Psychiatric Progress Note Patient seen today, length of contact: Patient evaluated, case discussed with team, chart reviewed Patient Chief Complaint: Behavioral disturbances; poor appetite and diminished self care Problems Identified/Issues Discussed: Patient is calmer w/ improved sleep. She continues to have poor appetite. She is less irritable towards staff. She has chronic poor insight/judgment due to dementia. No adverse effects to medication reported or observed. Diagnostic Results: VPA 59.8 Medication Change: No Medical Record Reviewed: Yes Consults ordered or reviewed: Medicine consult, Dietitian consult Mental Status Examination - Cognitive Function Orientation: Person Memory: Impaired Attention: Poor Concentration: Poor Association: Loose Fund of Knowledge: Poor Decription of patient's judgement and insights: Chronic poor I/J due to dementia - Mood Mood: Neutral - Affect Affect: Constricted - Speech Speech: Soft - Formal Thought Process Formal Thought Process: Loosening of associations Psychotic Thoughts and Behaviors: +Internal preoccupation/possibly responding to internal stimuli - Suicidal Ideation Suicidal Ideation: No - Homicidal Ideation Homicidal Ideation: No Goal/Treatment Plan - Goal/Treatment Plan Need for Continued Stay: Remain at risks for inpatient hospitalization, Discharge may exacerbated symptoms, Severe functional impairment Progress Toward Problem(s) and Goals/Treatment Plan: Bipolar Disorder; Dementia with Behavioral Disturbances -Medicine consult -Individual and group therapy -Case discussed w/ POA; psychoeducation provided -Continue Namenda 5 mg PO BID -Continue Depakote to 250 mg PO Daily/ 375 mg @1700; VPA 59.8 -Continue Risperdal 0.5 mg PO HS -PT consult -Dietitian consult -Disposition planning Estimated Date of D/C: 09/15/17
--- NOTE | 2017-09-10 13:02 | PCM.BM ---
Treatment Plan Problems - Problems identified on initial assessmt agitation/agressive behavior Date Initiated: 09/02/17 Time Initiated: 13:02 Date resolved: 09/09/17 Assessment reference: AT, NA Status: Active Priority: 1 high risk for injury Date Initiated: 09/02/17 Time Initiated: 13:07 Date resolved: 09/09/17 Assessment reference: NA Status: Active Priority: 2 Treatment assets and liabiliti Patient Assests: good support system Patient Liabilities: medical problems, imparied memory - Milieu Protocol Maintain good personal hygiene: every shift Encourage regular showers, every shift Remind patient to perform daily oral care, every shift Assist patient to perform ADL's Maintain personal safety: every shift Educate patient to report safety concerns to staff, every shift Monitor environment for contraband/sharps Medication safety: Monitor for expected outcome, potential side effects: every shift, Assess barriers to learning: every shift, Assess readiness for medication education: every shift Milieu Narrative: Bipolar Disorder; Dementia with Behavioral Disturbances -Medicine consult -Individual and group therapy -Case discussed w/ POA; psychoeducation provided -Continue Namenda 5 mg PO BID -Continue Depakote to 250 mg PO Daily/ 375 mg @1700; VPA 59.8 -Continue Risperdal 0.5 mg PO HS -PT consult -Dietitian consult -Disposition planning Family Contact Family involvement: Family/SO is involved Family contact: Patient agrees to contact, Family has been contacted by patient , Telephone contact initiated by staff Family contact name: Aime OLIVEIRA Family contacted how many times per week?: 2 Family contact comment: [phone] - Outside Agency [facility] Care involvment: Information-sharing Agency contact name: 1st floor Agency contact number: [phone] - Goals for Treatment Patient goals for treatment: Pt unable to provide goals for treatment due to severe cognitive impairment. Discharge/Continuing Care - Education Needs Education Needs: Family Medication, Family Diagnosis/Disease Process, Family Coping Skills, Family Placement options, Family Uses of Medical Equipment, Family Health Practices/Safety, Family Personal Hygiene/Grooming - Discharge Discharge Criteria: Tolerates medication w/o severe side effects, Free of agitation, Normal sleep pattern, Ability to care for self, Reduction of target symptoms Discharge to:: Snf - Additional Comments 09/03/17 12:39 Pt discussed in team meeting. Pt observed to be asleep and not easily aroused. Reason for admissions reviewed and discussed. Pt's medical and social issues reviewed. Pt's medications reviewed and discussed. Tx plan reviewed. SW to contact POA and LTC facility for collateral information. SW to continue to follow case. - Treatment Team Participation Patient/Family/SO Statement: Bipolar Disorder; Dementia with Behavioral Disturbances -Medicine consult -Individual and group therapy -Case discussed w/ POA; psychoeducation provided -Continue Namenda 5 mg PO BID -Continue Depakote to 250 mg PO Daily/ 375 mg @1700; VPA 59.8 -Continue Risperdal 0.5 mg PO HS -PT consult -Dietitian consult -Disposition planning Discussed with Family/SO: No Was Patient/Family/SO present at Treatment Team Meeting: No Treatment Plan Review Patient participation: No Family/SO/Caregiver participation: No Additional Comments: Pt discussed and reviewed in team meeting. Pt's progress and bx reviewed. Pt is less agitated and aggressive. Pt's sleep is improving. Reportedly, pt slept for 5 hours last night. Pt still has periods of outburst and not being able to follow direction. pt's memory and cognitive functions remains poor. Pt's appetite is poor and requires encouragement. Pt's medications reviewed and discussed. SW to continue to follow case and met with family to review and discuss discharge planning. - Problem agitation/agressive behavior Date Initiated: 09/02/17 Time Initiated: 13:02 Progress toward outcomes: improved high risk for injury Date Initiated: 09/02/17 Time Initiated: 13:07 Progress toward outcomes: improved - Discharge / Continuing Care Discharge to:: Snf, Residential Facility Behavioral Health Services: Other (Medication Management) Health Needs: Follow up care/test, Doctor appointments, Special equipment, Nutritional, Medications/Rx, Recreational/Social
--- NOTE | 2017-09-11 09:18 | PCM.PYCHPN ---
Psychiatric Progress Note - Psychiatric Progress Note Patient seen today, length of contact: Patient evaluated, case discussed with team, chart reviewed Patient Chief Complaint: Behavioral disturbances; poor appetite and diminished self care Problems Identified/Issues Discussed: Patient continues to have improvement in mood and less behavioral disturbances. Her sleep has improved (slept >5 hrs last night). She continues to have poor appetite and needs staff encouragement to eat. Patient continues to receive supplements. No adverse effects to medication reported or observed. Diagnostic Results: VPA 59.8 Medication Change: No Medical Record Reviewed: Yes Consults ordered or reviewed: Medicine consult, Dietitian consult Mental Status Examination - Cognitive Function Orientation: Person Memory: Impaired Attention: Poor Concentration: Poor Association: Loose Fund of Knowledge: Poor Decription of patient's judgement and insights: Chronic poor I/J due to dementia - Mood Mood: Neutral - Affect Affect: Constricted - Speech Speech: Soft - Formal Thought Process Formal Thought Process: Loosening of associations Psychotic Thoughts and Behaviors: +Internal preoccupation/possibly responding to internal stimuli - Suicidal Ideation Suicidal Ideation: No - Homicidal Ideation Homicidal Ideation: No Goal/Treatment Plan - Goal/Treatment Plan Need for Continued Stay: Remain at risks for inpatient hospitalization, Discharge may exacerbated symptoms, Severe functional impairment Progress Toward Problem(s) and Goals/Treatment Plan: Bipolar Disorder; Dementia with Behavioral Disturbances -Medicine consult -Individual and group therapy -Case discussed w/ POA; psychoeducation provided -Continue Namenda 5 mg PO BID -Continue Depakote to 250 mg PO Daily/ 375 mg @1700; VPA 59.8 -Continue Risperdal 0.5 mg PO HS -PT consult -Dietitian consult -Disposition planning Estimated Date of D/C: 09/15/17
[2017-09-11] MEDS: Divalproex 125 mg Sprinkle Capsule PO SCH ×2 (09:49→16:53)
[2017-09-11] MEDS: Cholecalciferol 400 Intl Units Tab PO SCH (09:50)
[2017-09-11] MEDS: Multi Vitamins 15 mL UD Oral Solution PO SCH (09:51)
[2017-09-11] MEDS: Levothyroxine 50 MCG TAB PO SCH (09:51)
[2017-09-11] MEDS: Megestrol Acetate 40 mg/ml Cup PO SCH (12:53)
--- NOTE | 2017-09-11 15:28 | CP.PCM.CON ---
History of Present Illness - History of Present Illness History of Present Illness: Patient is an 86 y/o female with PMH of HTN, hypothyroidism, dementia and bipolar disease who was admitted to the hospital due to behavioral disturbances. Dr. Gallego was consulted for orthopedic follow up after undergoing a closed reduction and long arm casting in the OR on 07/11/2017. The patient has been following up with Dr. Gallego without complications. The patient is a poor historian and currently complains of no pain or associated symptoms. The patient has been using her left hand for various activities of daily living while admitted. The patient was scheduled for regular follow in the office with Dr. Gallego today. Review of Systems - Review of Systems All systems: reviewed and no additional remarkable complaints except Review of Systems: as per HPI Past Patient History - Past Medical History & Family History Past Medical History?: Yes Past Family History: Reviewed and not pertinent - Past Social History Smoking Status: Never Smoked - CARDIAC Hx Hypercholesterolemia: Yes Hx Hypertension: Yes - PULMONARY Hx Tuberculosis: No - NEUROLOGICAL HX Cerebrovascular Accident: No Hx Seizures: No - HEENT Hx HEENT Problems: No - RENAL Hx Chronic Kidney Disease: No - ENDOCRINE/METABOLIC Hx Hypothyroidism: Yes - HEMATOLOGICAL/ONCOLOGICAL Hx Cancer: No Hx Human Immunodeficiency Virus (HIV): No - INTEGUMENTARY Hx Dermatological Problems: No - MUSCULOSKELETAL/RHEUMATOLOGICAL Hx Musculoskeletal Disorders: Yes Hx Falls: Yes - GASTROINTESTINAL Hx Gastrointestinal Disorders: No - GENITOURINARY/GYNECOLOGICAL Hx Sexually Transmitted Disorders: No - PSYCHIATRIC Hx Anxiety: Yes Hx Bipolar Disorder: Yes Hx Depression: Yes - SURGICAL HISTORY Hx Surgeries: No Other/Comment: left distal radius closed reduction (07/14/17) - ANESTHESIA Hx Anesthesia: Yes Hx Anesthesia Reactions: No Hx Malignant Hyperthermia: No Meds Allergies/Adverse Reactions: Allergies Allergy/AdvReac Type Severity Reaction Status Date / Time No Known Allergies Allergy Verified 09/02/17 04:15 - Medications Medications: Current Medications Acetaminophen (Tylenol 325mg Tab) 650 mg PO Q4 PRN PRN Reason: Pain, moderate (4-7) Al Hydrox/Mg Hydrox/Simethicone (Maalox Plus 30 Ml) 30 ml PO Q4 PRN PRN Reason: Dyspepsia Atorvastatin Calcium (Lipitor) 20 mg PO DAILY [facility] Last Admin: 09/11/17 09:51 Dose: 20 mg Bismuth Subsalicylate (Pepto-Bismol) 524 mg PO Q4 PRN PRN Reason: Diarrhea Divalproex Sodium (Depakote Sprinkles) 250 mg PO DAILY [facility] Last Admin: 09/11/17 09:49 Dose: 250 mg Divalproex Sodium (Depakote Sprinkles) 375 mg PO DAILY@1700 [facility] Last Admin: 09/10/17 16:16 Dose: 375 mg Enalapril Maleate (Vasotec) 5 mg PO DAILY [facility] Last Admin: 09/11/17 09:52 Dose: Not Given Levothyroxine Sodium (Synthroid) 75 mcg PO DAILY@0630 [facility] Magnesium Hydroxide (Milk Of Magnesia) 30 ml PO HS PRN PRN Reason: Constipation Megestrol Acetate (Megace) 400 mg PO DAILY [facility] Last Admin: 09/11/17 12:53 Dose: 400 mg Memantine (Namenda) 5 mg PO BID [facility] Last Admin: 09/11/17 09:51 Dose: 5 mg Multivitamins/Vitamin C (Multi-Delyn Liquid) 15 ml PO DAILY [facility] Last Admin: 09/11/17 09:51 Dose: 15 ml Risperidone (Risperdal M-Tab) 0.5 mg PO Q12 PRN PRN Reason: Agitation Last Admin: 09/09/17 21:14 Dose: 0.5 mg Risperidone (Risperdal Tab) 0.5 mg PO HS [facility] Last Admin: 09/10/17 21:06 Dose: 0.5 mg Trazodone HCl (Desyrel) 25 mg PO HS PRN PRN Reason: insomnia Vitamin D (Vitamin D 400 Intl Units Tab) 400 intlu PO DAILY [facility] Last Admin: 09/11/17 09:50 Dose: 400 intlu Physical Exam - Constitutional Appears: Well, No Acute Distress - Head Exam Head Exam: ATRAUMATIC, NORMOCEPHALIC - Eye Exam Eye Exam: EOMI, Normal appearance, PERRL - ENT Exam ENT Exam: Mucous Membranes Moist - Respiratory Exam Respiratory Exam: NORMAL BREATHING PATTERN - Extremities Exam Additional comments: LUE: short arm cast CDI, no swelling, no lesions, no tenderness sensation intact MN/UN/RN motor intact MN/UN/RN 2 sec cap refill all fingers RUE: no swelling, no lesions sensation intact MN/UN/RN motor intact MN/UN/RN 2 sec cap refill all fingers Results - Vital Signs Recent Vital Signs: Last Vital Signs Temp 98.1 F 09/11/17 05:35 Pulse 96 H 09/11/17 05:35 Resp 18 09/11/17 05:35 BP 96/56 L 09/11/17 05:35 Pulse Ox 100 09/02/17 11:55 - Labs Result Diagrams: 09/03/17 06:29 09/03/17 06:29 Assessment & Plan (1) Displaced fracture of distal end of left radius Assessment and Plan: Patient is an 86 y/o female with left radius fracture 2 months s/p closed reduction in OR -repeat L wrist x-ray -plan to remove cast on Friday 09/15, and transition to cock up wrist splint -OT once cast removed -above d/w Dr. Gallego in agreement Status: Acute
[2017-09-12] MEDS: Levothyroxine 75 MCG TAB PO SCH (06:19)
--- NOTE | 2017-09-12 08:25 | PCM.PYCHPN ---
Psychiatric Progress Note - Psychiatric Progress Note Patient seen today, length of contact: Patient evaluated, case discussed with team, chart reviewed Patient Chief Complaint: Behavioral disturbances; poor appetite and diminished self care Problems Identified/Issues Discussed: Patient continues to have improvement in mood and less behavioral disturbances. Her sleep has improved (slept 9 hrs last night). She continues to have poor appetite and needs staff encouragement to eat. Patient continues to receive supplements and was started on Megace yesterday. No adverse effects to medication reported or observed. Patient seen by Ortho consult yesterday, cast scheduled to be removed on Friday. Diagnostic Results: VPA 59.8 Medication Change: No Medical Record Reviewed: Yes Consults ordered or reviewed: Medicine consult, Dietitian consult, Orthopedic Consult Mental Status Examination - Cognitive Function Orientation: Person Memory: Impaired Attention: Poor Concentration: Poor Association: Loose Fund of Knowledge: Poor Decription of patient's judgement and insights: Chronic poor I/J due to dementia - Mood Mood: Neutral - Affect Affect: Constricted - Speech Speech: Soft - Formal Thought Process Formal Thought Process: Loosening of associations Psychotic Thoughts and Behaviors: +Internal preoccupation/possibly responding to internal stimuli - Suicidal Ideation Suicidal Ideation: No - Homicidal Ideation Homicidal Ideation: No Goal/Treatment Plan - Goal/Treatment Plan Need for Continued Stay: Remain at risks for inpatient hospitalization, Discharge may exacerbated symptoms, Severe functional impairment Progress Toward Problem(s) and Goals/Treatment Plan: Bipolar Disorder; Dementia with Behavioral Disturbances -Medicine consult appreciated; Synthroid increased to 75 mcg PO Daily@630 today -Individual and group therapy -Case discussed w/ POA; psychoeducation provided -Continue Namenda 5 mg PO BID -Continue Depakote to 250 mg PO Daily/ 375 mg @1700; VPA 59.8 -Continue Risperdal 0.5 mg PO HS -PT consult -Dietitian consult; Ensure supplements given -Megace started -Ortho consult; cast scheduled to be removed on Friday -Disposition planning Estimated Date of D/C: 09/16/17
[2017-09-12] MEDS: Divalproex 125 mg Sprinkle Capsule PO SCH ×2 (09:12→16:35)
[2017-09-12] MEDS: Megestrol Acetate 40 mg/ml Cup PO SCH (09:14)
[2017-09-12] MEDS: Multi Vitamins 15 mL UD Oral Solution PO SCH (09:15)
[2017-09-12] MEDS: Cholecalciferol 400 Intl Units Tab PO SCH (09:16)
[2017-09-13] MEDS: Divalproex 125 mg Sprinkle Capsule PO SCH ×2 (08:47→17:31)
[2017-09-13] MEDS: Megestrol Acetate 40 mg/ml Cup PO SCH (08:48)
[2017-09-13] MEDS: Cholecalciferol 400 Intl Units Tab PO SCH (08:48)
[2017-09-13] MEDS: Multi Vitamins 15 mL UD Oral Solution PO SCH (08:48)
[2017-09-13] MEDS: Levothyroxine 75 MCG TAB PO SCH (08:49)
--- NOTE | 2017-09-13 10:03 | PCM.PYCHPN ---
Psychiatric Progress Note - Psychiatric Progress Note Patient seen today, length of contact: Patient evaluated, case discussed with team, chart reviewed Patient Chief Complaint: pt has been less irritible and less labile but still refusing the X ray of lt forearm and need redirection. Medication Change: No Medical Record Reviewed: Yes Mental Status Examination - Cognitive Function Orientation: Person Memory: Impaired Attention: Poor Concentration: Poor Association: Loose Fund of Knowledge: Poor - Mood Mood: Neutral - Affect Affect: Constricted - Speech Speech: Soft - Formal Thought Process Formal Thought Process: Loosening of associations - Suicidal Ideation Suicidal Ideation: No - Homicidal Ideation Homicidal Ideation: No Goal/Treatment Plan - Goal/Treatment Plan Need for Continued Stay: Remain at risks for inpatient hospitalization, Discharge may exacerbated symptoms, Severe functional impairment Progress Toward Problem(s) and Goals/Treatment Plan: will continue to engage pt in treatment and encourage compliance Estimated Date of D/C: 09/16/17
[2017-09-13] MEDS: Risperidone M tab 0.5MG PO PRN (22:03)
[2017-09-14] MEDS: Divalproex 125 mg Sprinkle Capsule PO SCH ×2 (08:37→17:30)
[2017-09-14] MEDS: Levothyroxine 75 MCG TAB PO SCH (08:37)
[2017-09-14] MEDS: Megestrol Acetate 40 mg/ml Cup PO SCH (08:38)
[2017-09-14] MEDS: Cholecalciferol 400 Intl Units Tab PO SCH (08:38)
[2017-09-14] MEDS: Multi Vitamins 15 mL UD Oral Solution PO SCH (08:38)
--- NOTE | 2017-09-14 10:08 | RAD ---
PROCEDURE: Left Wrist Radiographs. HISTORY: L wrist fx 2 months s/p closed reduction COMPARISON: None. FINDINGS: BONES: There are impacted displaced fractures seen at the distal left radius likely extending to the articular surface of the radiocarpal joint. There is displaced bony fragment to the volar aspect of the left breast. There is ulnar positive variant noted. Sub cortical foci of lucency noted in the lunate bone. Diffuse demineralization of the carpal bone is also noted. The left less in cast which limits the evaluation for fine details. JOINTS: This suspicious for mild subluxation of the radiocarpal joint. SOFT TISSUES: Normal. OTHER FINDINGS: None. IMPRESSION: The left wrist in cast which limits the evaluation of the bone and soft tissue details. Intra-articular displaced fracture of the distal left radius with displacement of bony fragment and possible subluxation of the radiocarpal joint.
--- NOTE | 2017-09-14 14:45 | PCM.PYCHPN ---
Psychiatric Progress Note - Psychiatric Progress Note Patient seen today, length of contact: Patient evaluated, case discussed with team, chart reviewed Patient Chief Complaint: pt has been less irritible and less labile but still continues to be resistant to meds and need lot of coaxing to take meds and remains with poor insight and need stabilization, Medication Change: No Medical Record Reviewed: Yes Mental Status Examination - Cognitive Function Orientation: Person Memory: Impaired Attention: Poor Concentration: Poor Association: Loose Fund of Knowledge: Poor - Mood Mood: Neutral - Affect Affect: Constricted - Speech Speech: Soft - Formal Thought Process Formal Thought Process: Loosening of associations - Suicidal Ideation Suicidal Ideation: No - Homicidal Ideation Homicidal Ideation: No Goal/Treatment Plan - Goal/Treatment Plan Need for Continued Stay: Remain at risks for inpatient hospitalization, Discharge may exacerbated symptoms, Severe functional impairment Progress Toward Problem(s) and Goals/Treatment Plan: will continue to engage pt in treatment and encourage compliance Estimated Date of D/C: 09/16/17
[2017-09-15] MEDS: Divalproex 125 mg Sprinkle Capsule PO SCH ×2 (08:48→16:36)
[2017-09-15] MEDS: Megestrol Acetate 40 mg/ml Cup PO SCH (08:50)
[2017-09-15] MEDS: Multi Vitamins 15 mL UD Oral Solution PO SCH (08:50)
[2017-09-15] MEDS: Cholecalciferol 400 Intl Units Tab PO SCH (08:52)
[2017-09-15] MEDS: Levothyroxine 75 MCG TAB PO SCH (08:52)
--- NOTE | 2017-09-15 10:15 | PCM.PYCHPN ---
Psychiatric Progress Note - Psychiatric Progress Note Patient seen today, length of contact: Patient evaluated, case discussed with team, chart reviewed Patient Chief Complaint: Behavioral disturbances; poor appetite and diminished self care Problems Identified/Issues Discussed: Patient is improving clinically. She is irritable at times, but is overall calm and not aggressive. She continues to have poor appetite despite treatment with appetite stimulant, supplement and staff support with eating. It seems like decreased willingness to eat has a behavioral component because she get irritated that people try to encourage her to eat. +Improved sleep. NO AH/VH/ SI/HI/aggression. Diagnostic Results: VPA 59.8 Medication Change: No Medical Record Reviewed: Yes Consults ordered or reviewed: Medicine consult, Dietitian consult, Orthopedic Consult Mental Status Examination - Cognitive Function Orientation: Person Memory: Impaired Attention: Poor Concentration: Poor Association: Loose Fund of Knowledge: Poor Decription of patient's judgement and insights: Chronic poor I/J due to dementia - Mood Mood: Neutral - Affect Affect: Constricted - Speech Speech: Soft - Formal Thought Process Formal Thought Process: Loosening of associations Psychotic Thoughts and Behaviors: No AH/VH/paranoia - Suicidal Ideation Suicidal Ideation: No - Homicidal Ideation Homicidal Ideation: No Goal/Treatment Plan - Goal/Treatment Plan Need for Continued Stay: Remain at risks for inpatient hospitalization, Discharge may exacerbated symptoms, Severe functional impairment Progress Toward Problem(s) and Goals/Treatment Plan: Bipolar Disorder; Dementia with Behavioral Disturbances; patient continues to improve clinically; [facility] if she continues to have clinical improvement. -Medicine consult appreciated -Ortho consult appreciated -Individual and group therapy -Case discussed w/ POA; psychoeducation provided -Continue Namenda 5 mg PO BID -Continue Depakote to 250 mg PO Daily/ 375 mg @1700; VPA 59.8 -Continue Risperdal 0.5 mg PO HS -PT consult -Dietitian consult; Ensure supplements given -Continue Megace -Disposition planning Estimated Date of D/C: 09/16/17
--- NOTE | 2017-09-15 14:06 | CP.PCM.PN ---
Subjective - Date & Time of Evaluation Date of Evaluation: 09/15/17 Time of Evaluation: 14:06 - Subjective Subjective: Patient seen and examined OOB to chair comfortable. No complaints of pain. No new complaints. Objective - Vital Signs/Intake and Output Vital Signs (last 24 hours): Temp Pulse Resp BP Pulse Ox 97.7 F 85 18 97/61 L 100 09/15/17 06:06 09/15/17 06:06 09/15/17 06:06 09/15/17 06:06 09/02/17 11:55 - Medications Medications: Current Medications Acetaminophen (Tylenol 325mg Tab) 650 mg PO Q4 PRN PRN Reason: Pain, moderate (4-7) Al Hydrox/Mg Hydrox/Simethicone (Maalox Plus 30 Ml) 30 ml PO Q4 PRN PRN Reason: Dyspepsia Atorvastatin Calcium (Lipitor) 20 mg PO DAILY [facility] Last Admin: 09/15/17 08:50 Dose: 20 mg Bismuth Subsalicylate (Pepto-Bismol) 524 mg PO Q4 PRN PRN Reason: Diarrhea Divalproex Sodium (Depakote Sprinkles) 250 mg PO DAILY [facility] Last Admin: 09/15/17 08:48 Dose: 250 mg Divalproex Sodium (Depakote Sprinkles) 375 mg PO DAILY@1700 [facility] Last Admin: 09/14/17 17:30 Dose: 375 mg Enalapril Maleate (Vasotec) 5 mg PO DAILY [facility] Last Admin: 09/15/17 08:54 Dose: Not Given Levothyroxine Sodium (Synthroid) 75 mcg PO DAILY@0630 [facility] Last Admin: 09/15/17 08:52 Dose: 75 mcg Magnesium Hydroxide (Milk Of Magnesia) 30 ml PO HS PRN PRN Reason: Constipation Megestrol Acetate (Megace) 400 mg PO DAILY [facility] Last Admin: 09/15/17 08:50 Dose: 400 mg Memantine (Namenda) 5 mg PO BID [facility] Last Admin: 09/15/17 08:51 Dose: 5 mg Multivitamins/Vitamin C (Multi-Delyn Liquid) 15 ml PO DAILY [facility] Last Admin: 09/15/17 08:50 Dose: 15 ml Risperidone (Risperdal M-Tab) 0.5 mg PO Q12 PRN PRN Reason: Agitation Last Admin: 09/13/17 22:03 Dose: 0.5 mg Risperidone (Risperdal Tab) 0.5 mg PO HS [facility] Last Admin: 09/14/17 21:15 Dose: 0.5 mg Trazodone HCl (Desyrel) 25 mg PO HS PRN PRN Reason: insomnia Vitamin D (Vitamin D 400 Intl Units Tab) 400 intlu PO DAILY [facility] Last Admin: 09/15/17 08:52 Dose: 400 intlu - Labs Labs: 09/03/17 06:29 09/03/17 06:29 - Extremities Exam Additional comments: LUE: short arm cast CDI, no swelling, no lesions, no tenderness sensation intact MN/UN/RN motor intact MN/UN/RN 2 sec cap refill all fingers Assessment and Plan (1) Displaced fracture of distal end of left radius Assessment & Plan: Patient is an 86 y/o female with left radius fracture 2 months s/p closed reduction in OR -Dr. Dewayne Esteves proposes to remove current cast and replace with new short arm cast today -Cast will be removed and patient will be placed in custom wrist brace in Dr. Dewayne Carver's office upon f/u -F/u in office in 7-10 days -orthopedically stable for discharge -above d/w Dr. Gallego in agreement Status: Acute Procedures Attestation:: I certify that I have explained the specified Operation(s) or Procedure(s), risks, benefits and reasonable alternatives to the Patient and/or other person responsible. The opportunity was given to ask questions and all questions answered - Cast Removal Reason for procedure: other (loose cast) Cast Saw used: Yes Cast procedure: removal Post Removal Neuro Exam: INTACT Post Removal Vascular Exam: INTACT Patient Tolerated Procedure: well - Orthopedic Splinting/Casting Injury #1 Side: left Upper Extremity Injury Location: wrist Upper Extremity Immobilizer: wrist splint (short arm cast) Radiology Interpretation - Notes: Notes:: Accession No. : [id number] Patient Name / ID : ALLYSON WYLIE / [id number] Exam Date : 09/13/2017 10:37:34 ( Approved ) Study Comment : Sex / Age : F / 86Y Creator : Meg Pascual MD Dictator : Meg Pascual MD Strategic Communications Specialist : Assistant Family Teacher : Meg Pascual MD Approver2 : Report Date : 09/14/2017 10:02:24 My Comment : PROCEDURE: Left Wrist Radiographs. HISTORY: L wrist fx 2 months s/p closed reduction COMPARISON: None. FINDINGS: BONES: There are impacted displaced fractures seen at the distal left radius likely extending to the articular surface of the radiocarpal joint. There is displaced bony fragment to the volar aspect of the left breast. There is ulnar positive variant noted. Sub cortical foci of lucency noted in the lunate bone. Diffuse demineralization of the carpal bone is also noted. The left less in cast which limits the evaluation for fine details. JOINTS: This suspicious for mild subluxation of the radiocarpal joint. SOFT TISSUES: Normal. OTHER FINDINGS: None. IMPRESSION: The left wrist in cast which limits the evaluation of the bone and soft tissue details. Intra-articular displaced fracture of the distal left radius with displacement of bony fragment and possible subluxation of the radiocarpal joint.
[2017-09-16 06:08] VITALS: BP 94/60; PULSE 96; RESP 19; TEMP 96.9
--- NOTE | 2017-09-16 08:32 | PCM.PYCHDC ---
Mental Status Examination - Mental Status Examination Orientation: Person Memory: Impaired (Chronic deficits in memory, attention, concentration, association and knowledge due to dementia) Mood: Neutral Affect: Broad Speech: Soft Attention: Poor Concentration: Poor Association: Loose Fund of Knowledge: Poor Formal Thought Process: Loosening of associations Description of patient's judgement and insight: Chronic poor I/J due to dementia Psychotic Thoughts and Behaviors: No AH/VH/paranoia Suicidal Ideation: No Current Homicidal Ideation?: No Discharge Summary - Discharge Note Reason for Hospitalization: HPI: 86 yo w/ h/o Bipolar Disorder, Dementia, HTN, Hypothyrodism, Constipation, brought to ED for worsening behavior disturbances, aggression, decreased appetite, poor self care, mood lability and worsening dementia. Patient is unable to provide any history at this time due to acute disorganization. Geological Technician spoke with patient's sister, TEE, Aime Whelan [phone], who stated that the patient has been increasingly aggressive. She reports that has a long history of bipolar disorder, but was recently discontinued off the Bluford due to Bluford toxicity last month. PMHx: HTN, Hypothyroidism, Dementia PPHx: H/o Bipolar disorder and treatment w/ Bluford All: NKDA SHx: Denied any tobacco, ETOH, or illicit drug use; resides in a detention POA: Aime Whelan - sister - [phone] Laboratory Data: VPA 59.8 --- PROCEDURE: Left Wrist Radiographs. HISTORY: L wrist fx 2 months s/p closed reduction COMPARISON: None. FINDINGS: BONES: There are impacted displaced fractures seen at the distal left radius likely extending to the articular surface of the radiocarpal joint. There is displaced bony fragment to the volar aspect of the left breast. There is ulnar positive variant noted. Sub cortical foci of lucency noted in the lunate bone. Diffuse demineralization of the carpal bone is also noted. The left less in cast which limits the evaluation for fine details. JOINTS: This suspicious for mild subluxation of the radiocarpal joint. SOFT TISSUES: Normal. OTHER FINDINGS: None. IMPRESSION: The left wrist in cast which limits the evaluation of the bone and soft tissue details. Intra-articular displaced fracture of the distal left radius with displacement of bony fragment and possible subluxation of the radiocarpal joint. Consultations:: List each consultation separately and include: 1. Reason for request. 2. Findings. 3. Follow-up Consultations: Medicine consult Dietitian consult- Patient was given Ensure supplements Orthopedic Consult- Patient's Left arm cast was removed and replaced on 09/15/17 Summary of Hospital Course include:: 1. Description of specific treatment plan utilized for patients during their course of treatmen. 2. Summarize the time- course for resolution of acute symptoms and/or regressed behaviors. 3. Describe issues identified and worked on during hospitalization. 4. Describe medication utilized. 5. Describe medical problems identified and treated. 6. Reassessment of suicide risk Summary of Hospital Course: Patient was admitted to the geriatric psychiatry unit. Case was discussed w/ patient's POA. Patient was seen by dietitian technical assistance consultant and was started on Ensure supplements. Patient was also started on Megace as an appetite stimulant. She was stabilized psychiatrically on: Depakote 250 mg PO Daily/ 375 mg PO Daily@1700, Risperdal 0.5 mg PO HS and Namenda 5 mg PO BID. Patient has improved clinically and is currently at her baseline of functioning. - Diagnosis (1) Dementia with behavioral disturbance Current Visit: Yes Status: Chronic (2) Bipolar disorder Current Visit: Yes Status: Chronic - Final Diagnosis (DSM 5) Condition upon Discharge: STABLE DSM 5: Bipolar Disorder; Dementia with behavioral disturbances Disposition: TRANSF TO SNF Follow-up Treatment Plan: Bipolar Disorder; Dementia with Behavioral Disturbances; patient is psychiatrically stable for discharge at this time. -Medicine consult appreciated -Ortho consult appreciated -Individual and group therapy -Case discussed w/ POA; psychoeducation provided -Continue Namenda 5 mg PO BID -Continue Depakote 250 mg PO Daily/ 375 mg @1700; VPA 59.8 -Continue Risperdal 0.5 mg PO HS -PT consult -Dietitian consult; Ensure supplements given -Continue Megace - Smoking Cessation Smoking Cessation Medication prescribed: No Reason for not providing: Not indicated - Antipsychotic Medications Pt discharged on 2 or more routine antipsychotic medications: No
[2017-09-16] MEDS: Divalproex 125 mg Sprinkle Capsule PO SCH (08:45)
[2017-09-16] MEDS: Multi Vitamins 15 mL UD Oral Solution PO SCH (08:46)
[2017-09-16] MEDS: Megestrol Acetate 40 mg/ml Cup PO SCH (08:46)
[2017-09-16] MEDS: Levothyroxine 75 MCG TAB PO SCH (08:46)
[2017-09-16] MEDS: Cholecalciferol 400 Intl Units Tab PO SCH (08:47)
== END 2017-09-16 15:00 | DRG 884 ==
LOC: H.ER 21:10 → H.ERHOLD 09-02 11:42 → H.STEP 09-02 12:12
PROVIDERS: ADMIT Psychiatry & Neurology Psychiatry; ATTEND Psychiatry & Neurology Psychiatry
PROC: GZHZZZZ Group Psychotherapy (ICD-10-PCS; principal; 2017-09-03)
PROC: GZ51ZZZ Individual Psychotherapy, Behavioral (ICD-10-PCS; 2017-09-03)
PROC: 2W5 Placement, Anatomical Regions, Removal (ICD-10-PCS; 2017-09-15)
PROC: 2W3DX3Z Immobilization of Left Lower Arm using Brace (ICD-10-PCS; 2017-09-15)
DX: F03.91 Unspecified dementia, unspecified severity, with behavioral disturbance (principal); F31.9 Bipolar disorder, unspecified; I10 Essential (primary) hypertension; R29.6 Repeated falls; S52.502D Unspecified fracture of the lower end of left radius, subsequent encounter for closed fracture with routine healing; X58.XXXD Exposure to other specified factors, subsequent encounter; Z79.899 Other long term (current) drug therapy; F32.9 Major depressive disorder, single episode, unspecified; F41.9 Anxiety disorder, unspecified; K59.00 Constipation, unspecified; R63.0 Anorexia; E03.9 Hypothyroidism, unspecified; E05.90 Thyrotoxicosis, unspecified without thyrotoxic crisis or storm; E78.00 Pure hypercholesterolemia, unspecified; E78.5 Hyperlipidemia, unspecified